=== PATIENT | female | born 1995 | race Caucasian/White ===

== ENCOUNTER → 2016-10-24 | Outpatient (CLI) | payer BC ==
[2016-10-24 08:09] LABS: Basophils # (A) 0.1 k/uL (0-0.2); Basophils % (A) 1 %; CHCM 32.2; Eosinophils # (A) 0.1 k/uL (0-0.7); Eosinophils % (A) 1 %; HCT 39.8 % (34.0-46.0); HDW 2.25; Luc # (Auto) 0.09; Luc % (Auto) 1; Lymphocytes # (A) 1.6 k/uL (1.0-4.8); Lymphocytes % (A) 23 %; MCH 28.5 pg (25.0-35.0); MCHC 32.7 g/dL (31.0-37.0); MCV 87.3 fL (80.0-100.0); Mean Platelet Volume 6.7; Monocytes # (A) 0.4 k/uL (0-1.0); Monocytes % (A) 5 %; Neutrophils % (A) 69 %; RBC 4.56 m/uL (3.80-5.40); WBC 7.2 k/uL (3.8-10.6); WBC (Perox) 7.06
[2016-10-24 08:33] LABS: ALT 28 U/L (9-52); AST 34 U/L (14-36); Alkaline Phosphatase 81 U/L (38-126); Anion Gap 13 mmol/L; Blood Urea Nitrogen 10 mg/dL (7-17); Calcium 9.8 mg/dL (8.4-10.2); Carbon Dioxide 27 mmol/L (22-30); Chloride 102 mmol/L (98-107); Cholesterol 164 mg/dL (<200); Glucose 95 mg/dL (74-99); HDL Cholesterol 49 mg/dL (40-60); Non-African American GFR(MDRD) >60 (>60 ml/min/1.73 sqM); Potassium 4.4 mmol/L (3.5-5.1); Sodium 142 mmol/L (137-145); Total Bilirubin 0.8 mg/dL (0.2-1.3); Total Protein 8.1 g/dL (6.3-8.2); Triglycerides 70 mg/dL (<150)
== END ==
LOC: LABWHC1 07:21
PROVIDERS: ATTEND Family Medicine
DX: E66.9 Obesity, unspecified (principal); R53.83 Other fatigue
CPT/HCPCS: 36415; 80053; 80061; 84443; 85025

== ENCOUNTER 2021-05-11 06:02 | Inpatient (IN) | payer BC, OTHER ==
--- NOTE | 2021-05-10 17:31 | P.HPOB ---
History of Present Illness H&P Date: 05/10/21 Chief Complaint: Advanced cervical dilatation This is a 26 y.o. female, 2, para 1, with an estimated date of confinement of 05/20/2021, estimated gestational age of 38-5/7 weeks, who presents for augmentation of labor due to advanced cervical dilatation with irregular contractions. She was found to be 6 cm at her visit in the office on 05/10/2021. She was 5.5-6 cm the week before, but she has noticed some bloody show this week. Her contractions are still irregular and she is having pressure. course has been essentially uncomplicated. She did see MFM earlier in the due to anxiety medication early in the . labs: Hepatitis B surface antigen-neg RPR-NR Rubella-immune Blood type-O+ Antibody screen-neg HIV-NR Hemoglobin-11.9 Random glucose-70 1 hr. GTT-102 GBS-neg OB Hx: . History of 1 vaginal delivery at term. [employer] Hx: No hx of STDs. Works at a pharmacy. Social Hx: Boyfriend. Review of Systems Constitutional: Denies chills, Denies fever Eyes: denies blurred vision, denies pain Ears, nose, mouth and throat: Denies headache, Denies sore throat Cardiovascular: Denies chest pain, Denies shortness of breath Respiratory: Denies cough Gastrointestinal: Reports abdominal pain (irregular contractions), Reports heartburn (a23) Genitourinary: Reports pelvic pain, Reports Musculoskeletal: Reports low back pain Integumentary: Denies pruritus, Denies rash Neurological: Denies numbness, Denies weakness Psychiatric: Reports anxiety, Reports depression, Reports difficulty concentrating Past Medical History Past Medical History: GERD/Reflux Past Surgical History: Tonsillectomy Additional Past Surgical History / Comment(s): [place] teeth Past Psychological History: ADD/ADHD, Anxiety, Depression Smoking Status: Former smoker Past Alcohol Use History: None Reported Past Drug Use History: None Reported - Past Family History Mother Family Medical History: No Reported History Medications and Allergies Home Medications Medication Instructions Recorded Confirmed Type Dextroamphetamine/Amphetamine 30 mg PO BID 05/10/21 05/10/21 History [Adderall] Pnv,Calcium 72/Iron/Folic Acid 1 each PO 05/10/21 History [ Plus Tablet] Allergies Allergy/AdvReac Type Severity Reaction Status Date / Time ciprofloxacin [From Cipro] Allergy Rash/Hives Verified 05/10/21 17:27 Sulfa (Sulfonamide Allergy Rash/Hives Verified 05/10/21 17:27 Antibiotics) topiramate [From Topamax] Allergy Rash/Hives Verified 05/10/21 17:27 Exam Osteopathic Statement: *. No significant issues noted on an osteopathic structural exam other than those noted in the History and Physical/Consult. HEENT: within normal limits Heart: regular rate and rhythm Lungs: clear to auscultation bilaterally Abdomen: , non-tender Cervix: 6 cm/70%/-2, posterior heart tones: 140's by doppler Extremities: neg. Shreya's Assessment and Plan (1) 38 weeks gestation of Status: Acute Code(s): Z3A.38 - 38 WEEKS GESTATION OF SNOMED Code(s): 74370664 (2) Labor without complication Status: Acute Code(s): O80 - ENCOUNTER FOR FULL-TERM UNCOMPLICATED DELIVERY SNOMED Code(s): 72052974 Plan: Proceed with oxytocin augmentation of labor. Epidural anesthesia if desired. Expectant management.
[2021-05-11] MEDS ORDERED: LIDOCAINE 1% (10MG/ML) FOR IV START INTRADERMA PRN (06:18)
[2021-05-11] MEDS ORDERED: OXYTOCIN 10 UNIT/ML 1 ML VIAL IM PRN (06:18)
[2021-05-11] MEDS ORDERED: OXYTOCIN 30 UNITS/500 ML NS 30 UNIT in SALINE 1 500ML.BAG IV SCH (06:18)
[2021-05-11] MEDS ORDERED: TERBUTALINE 1 MG/ML VIAL SQ PRN (06:18)
[2021-05-11] MEDS ORDERED: CARBOPROST TROMETHAMINE 250 MCG/ML 1 ML AMP IM PRN (06:18)
[2021-05-11] MEDS ORDERED: METHYLERGONOVINE 0.2 MG/ML 1 ML AMP IM PRN (06:18)
[2021-05-11] MEDS ORDERED: LIDOCAINE 0.5% (PF) 5 MG/ML (50 ML SDV) SQ PRN (06:18)
[2021-05-11] MEDS: LACTATED RINGERS 1,000 ML IV SCH ×2 (06:49→09:47)
[2021-05-11] MEDS: NON FORMULARY DRUG (Dextroamphetamine/Amphetamine [Adderall] 30 MG Tablet) PO SCH ×3 (07:14→21:00)
[2021-05-11 07:18] LABS: Basophils % (A) 0 %; Eosinophils # (A) 0.1 k/uL (0-0.7); Eosinophils % (A) 1 %; HCT 35.4 % (34.0-46.0); HGB 11.8 gm/dL (11.4-16.0); Lymphocytes # (A) 2.6 k/uL (1.0-4.8); Lymphocytes % (A) 23 %; MCHC 33.4 g/dL (31.0-37.0); MCV 86.8 fL (80.0-100.0); Mean Platelet Volume 7.8; Monocytes # (A) 0.6 k/uL (0-1.0); Monocytes % (A) 5 %; Neutrophils # (A) 7.7 k/uL (1.3-7.7); Neutrophils % (A) 69 %; Platelet Count 351 k/uL (150-450); RBC 4.07 m/uL (3.80-5.40); RDW 13.3 % (11.5-15.5); WBC 11.2 k/uL (3.8-10.6)
[2021-05-11] MEDS ORDERED: AMPICILLIN 2,000 MG in SODIUM CHLORIDE 0.9% 100 ML IVPB STA (08:08)
[2021-05-11] MEDS: PRENATAL VIT-IRON-FOLIC ACID 1 EACH CAP PO SCH (09:08)
[2021-05-11] MEDS ORDERED: fentaNYL (PF) 50 MCG/ML 5 ML AMP ONE (09:16)
[2021-05-11] MEDS ORDERED: SODIUM CHLORIDE 0.9% 100 ML BAG ONE (09:16)
[2021-05-11] MEDS ORDERED: ROPIVACAINE 5MG/ML 20ML VIAL ONE (09:16)
[2021-05-11] MEDS ORDERED: ROPIVACAINE 100 MG, fentaNYL (PF). 200 MCG in SODIUM CHLORIDE 0.9% 76 ML EPIDURAL ONE (09:41)
[2021-05-11] MEDS ORDERED: LANOLIN CREAM 5 GM TUBE TOPICAL PRN (11:44)
[2021-05-11] MEDS ORDERED: diphenhydrAMINE 50 MG CAP PO PRN (11:44)
[2021-05-11] MEDS ORDERED: ZOLPIDEM 5 MG TAB PO PRN (11:44)
[2021-05-11] MEDS ORDERED: HYDROCORTISONE 2.5% RECTAL CREAM 30 GM TUBE RECTAL PRN (11:44)
[2021-05-11] MEDS ORDERED: SIMETHICONE 80 MG CHEWABLE PO PRN (11:44)
[2021-05-11] MEDS ORDERED: BENZOCAINE/MENTHOL SPRAY 1 GM/SPRAY AEROSOL TOPICAL PRN (11:44)
[2021-05-11] MEDS ORDERED: diphenhydrAMINE 50 MG/ML 1 ML VIAL IVP PRN ×2 (11:44)
[2021-05-11] MEDS ORDERED: diphenhydrAMINE 25 MG CAP PO PRN (11:44)
[2021-05-11] MEDS ORDERED: AMPICILLIN 1,000 MG in SODIUM CHLORIDE 0.9% 50 ML IVPB SCH (12:00)
--- NOTE | 2021-05-11 13:09 | P.PROBDLV ---
Vaginal Delivery Note - . Vaginal Delivery Note: the patient progressed to complete dilation after artificial rupture membranes and oxytocin induction of labor. She had clear fluid. She did receive epidural anesthesia. Once reaching complete, she began pushing. 's head came to a crown. With one further push, the 's head delivered across the perineum followed by the anterior shoulder. With one further push, the remainder the easily delivered and was placed on mother's abdomen. Nose and mouth were bulb suctioned. Cord was clamped and cut and was taken to warmer for evaluation. A viable male is noted with scores of 9 at 1 minute and 9 at 5 minutes and weight of 7 lbs. 0 oz. Placenta delivered shortly thereafter, intact, with a three-vessel cord. Uterus contracted fairly well after oxytocin was given and uterine massage was carried out. Inspection of the perineum revealed a right periurethral laceration. This area was anesthetized with 1% lidocaine and then sutured with 3-0 Vicryl suture in a running locked fashion. Estimated blood loss is approximately 150 mL's. Both mother and are in stable condition.
[2021-05-11] MEDS: SENNOSIDES-DOCUSATE SODIUM 1 EACH TAB PO SCH (20:13)
[2021-05-12] MEDS: IBUPROFEN 600 MG TAB PO PRN ×2 (04:21→11:49)
[2021-05-12] MEDS: SENNOSIDES-DOCUSATE SODIUM 1 EACH TAB PO SCH (07:38)
[2021-05-12] MEDS: PRENATAL VIT-IRON-FOLIC ACID 1 EACH CAP PO SCH (07:41)
[2021-05-12 09:05] VITALS: RESP 18; TEMP 98.1
[2021-05-12] MEDS: NON FORMULARY DRUG (Dextroamphetamine/Amphetamine [Adderall] 30 MG Tablet) PO SCH (09:09)
[2021-05-12 09:29] LABS: RBC 3.79 m/uL (3.80-5.40); WBC 10.4 k/uL (3.8-10.6)
[2021-05-12 09:30] LABS: Basophils % (A) 0 %; Eosinophils # (A) 0.1 k/uL (0-0.7); Eosinophils % (A) 1 %; HCT 33.3 % (34.0-46.0); Lymphocytes # (A) 2.2 k/uL (1.0-4.8); Lymphocytes % (A) 22 %; MCH 28.9 pg (25.0-35.0); MCHC 32.9 g/dL (31.0-37.0); MCV 87.8 fL (80.0-100.0); Monocytes # (A) 0.5 k/uL (0-1.0); Monocytes % (A) 4 %; Neutrophils # (A) 7.4 k/uL (1.3-7.7); Neutrophils % (A) 71 %; Platelet Count 308 k/uL (150-450); RDW 13.2 % (11.5-15.5)
--- NOTE | 2021-05-12 10:56 | P.DS ---
Providers Date of admission: 05/11/21 06:02 Expected date of discharge: 05/12/21 Attending physician: Beverly Callejas Primary care physician: Stated None - Discharge Diagnosis(es) (1) 38 weeks gestation of Current Visit: No Status: Acute (2) Labor without complication Current Visit: No Status: Acute Hospital Course: This is a 26-year-old female 2 para 1 at 38-5/7 weeks who presented for induction or augmentation of labor due to advanced cervical dilation at 6 cm. She underwent oxytocin augmentation of labor and delivered vaginally a viable male with scores of 9 at 1 minute and 9 at 5 minutes and infant weight of 7 lbs. 0 oz. Her course has been uncomplicated. She is bottle feeding but would like a prescription for a breast pump to try at home. Lochia is decreasing. Her pain is well-controlled. Vital signs are stable. Abdomen is soft with fundus firm and nontender. Extremities show negative Homans. Impression is status post vaginal delivery day #1. Plan is to discharge home today. Routine instructions are given. She is advised to follow up in the office in 6 weeks for check. She is advised to call the office if she has any further questions or concerns prior to her appointment time. Procedures: Oxytocin augmentation of labor Spontaneous vaginal delivery of a viable male on 05/11/2021 Patient Condition at Discharge: Stable Plan - Discharge Summary New Discharge Prescriptions: New Ibuprofen [Motrin] 600 mg PO Q6HR PRN #60 tab PRN Reason: Mild Pain (Scale 1 To 3) Continue Pnv,Calcium 72/Iron/Folic Acid [ Plus Tablet] 1 each PO DAILY Dextroamphetamine/Amphetamine [Adderall] 30 mg PO BID Discharge Medication List Dextroamphetamine/Amphetamine [Adderall] 30 mg PO BID 05/10/21 [History] Pnv,Calcium 72/Iron/Folic Acid [ Plus Tablet] 1 each PO DAILY 05/10/21 [History] Ibuprofen [Motrin] 600 mg PO Q6HR PRN #60 tab 05/12/21 [Rx] Follow up Appointment(s)/Referral(s): Beverly Callejas DO [Doctor of Osteopathic Medicine] - 06/20/21 11:30 am Activity/Diet/Wound Care/Special Instructions: Instructions 1. Do not begin any exercise program for 3 weeks. 2. Do not resume sexual relations for 3 weeks or longer if uncomfortable. 3. You may take tub baths or showers at any time. 4. You may use tampons if desired after 3 weeks. 5. Keep the area of episiotomy (stitches) clean and dry. 6. If you are not nursing, wear a good fitting, supportive bra during the day and limit fluid intake for at least 1 week to prevent breast engorgement. 7. Call the office, [phone], within the next week to make appointment for your 6 week checkup if it has not already been made. 8. Report any of the following occurrences to the doctor promptly: a. Heavy, excessive bleeding b. Chills, fever c. Burning or frequency of urination d. Pain or redness and breasts if nursing e. Increasing pain or swelling in episiotomy (stitches). In addition to the above instructions, the following additional should be followed: 1. No heavy lifting or straining (exercising) until after 6 week checkup. 2. Keep abdominal incision clean and dry: You may wear a dressing if more comfortable. 3. Make office appointment for 10 days after going home or as instructed by her doctor. Discharge Disposition: HOME SELF-CARE
[2021-05-12 13:15] VITALS: BP 126/76; PULSE 75
== END 2021-05-12 14:45 | disposition home or self-care (01) | DRG 807 ==
LOC: 4FBP 06:02
PROVIDERS: ADMIT Obstetrics & Gynecology; ATTEND Obstetrics & Gynecology
PROC: 10E0XZZ Delivery of Products of Conception, External Approach (ICD-10-PCS; principal; 2021-05-11)
PROC: 3E033VJ Introduction of Other Hormone into Peripheral Vein, Percutaneous Approach (ICD-10-PCS; 2021-05-11)
PROC: 0HQ9XZZ Repair Perineum Skin, External Approach (ICD-10-PCS; 2021-05-11)
DX: O62.8 Other abnormalities of forces of labor (principal); Z37.0 Single live birth; Z3A.38 38 weeks gestation of pregnancy; F90.9 Attention-deficit hyperactivity disorder, unspecified type; Z87.891 Personal history of nicotine dependence; O71.82 Other specified trauma to perineum and vulva; O75.89 Other specified complications of labor and delivery
CPT/HCPCS: 85025; 86850; 86900; 86901

== ENCOUNTER → 2023-12-18 | Outpatient (CLI) | payer OTHER ==
[2023-12-18 10:54] LABS: Insulin Level 20.6 mIU/mL (3.0-25.0)
[2023-12-18 11:18] LABS: Estradiol <20.0 pg/mL; T4, Free (Free Thyroxine) 0.89 ng/dL (0.80-1.80)
[2023-12-18 12:28] LABS: Luteinizing Hormone 3.1 mIU/mL
[2023-12-19 14:21] LABS: HLA B27 POSITIVE
== END | disposition home or self-care (01) ==
LOC: LABWHC1 06:52
PROVIDERS: ATTEND Family Medicine
DX: R63.5 Abnormal weight gain (principal)
CPT/HCPCS: 36415; 82533; 82627; 82670; 83001; 83002; 83525; 84144; 84402; 84403; 84432; 84439; 84481; 86038; 86800; 86812